=== PATIENT | male | born 1955 | race Caucasian/White ===

== ENCOUNTER 2018-04-28 17:08 | Inpatient (IN) | payer MEDICARE ==
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
--- NOTE | ~2018-04-28 | CON ---
[place], [place] REPORT OF CONSULTATION NAME: TOMI APPIAH UNIT #: [id number] ROOM: 314 DOCTOR: JASON BERNARD DPM BIRTHDATE: [birth year] DOS: 04/29/2018 ADDENDUM The patient was seen with resident, [address]. I agree with the resident's note. JASON BERNARD DPM CM:CONSTR:REPORT OF CONSULTATION 1043 05/08/18 0909 interface
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
[2018-04-28] MEDS ORDERED: ZYVOX600 MG PO (18:19)
[2018-04-28] MEDS ORDERED: LOXAPINE25 MG PO ×2 (18:23→18:32)
[2018-04-28] MEDS ORDERED: LOXAPINE50 MG PO (18:23)
[2018-04-28] MEDS ORDERED: NIFEDIPINE60 MG PO (18:24)
[2018-04-28] MEDS ORDERED: COZAAR100 MG PO (18:25)
[2018-04-28] MEDS ORDERED: Coumadin5 MG PO (18:25)
[2018-04-28] MEDS ORDERED: LASIX40 MG PO (18:26)
[2018-04-28] MEDS ORDERED: INDERAL XL120 MG PO (18:27)
[2018-04-28] MEDS ORDERED: GLUCOPHAGE1000 MG PO (18:28)
[2018-04-28] MEDS ORDERED: NIFEDIPINE ER30 M1 PO (18:33)
[2018-04-28] MEDS ORDERED: MINOCYCLINE100 MG PO (18:34)
[2018-04-29 08:27] VITALS: BP 188/88
[2018-04-29 10:45] VITALS: BP 192/85
[2018-04-29 11:45] VITALS: BP 206/100
[2018-04-29 13:58] VITALS: BP 161/66
[2018-04-29 17:13] LABS: BASO # 0.1 10*3/uL (0.0-0.1); BASO % 0.6 % (0.0-1.0); EOS # 0.4 10*3/uL (0.0-0.4); EOS % 4.3 % (1.0-4.0); HEMATOCRIT 33.3 % (42.0-52.0); HEMOGLOBIN 11.3 g/dl (14.0-18.0); LYMPH # 1.7 10*3/uL (1.3-4.4); LYMPH % 16.6 % (27.0-41.0); MEAN CELL VOLUME 87.4 fl (80.0-94.0); MEAN CORPUSCULAR HGB 29.7 pg (27.0-31.0); MEAN CORPUSCULAR HGB CONC 33.9 g/dl (33.0-37.0); MEAN PLATELET VOLUME 8.2 fl (9.6-12.3); MONO # 1.1 10*3/uL (0.1-1.0); MONO % 10.7 % (3.0-9.0); NEUT # 6.9 10*3/uL (2.3-7.9); NEUT % 67.4 % (47.0-73.0); PLATELET COUNT AUTOMATED 344 10*3/uL (130-400); RED BLOOD COUNT 3.81 10*6/uL (4.50-5.90); RED CELL DISTRI WIDTH 12.4 % (0-14.5); WHITE BLOOD COUNT 10.2 10*3/uL (4.8-10.8)
[2018-04-29 17:25] LABS: BILIRUBIN NEGATIVE (NEGATIVE); BLOOD 1+ (NEGATIVE); CLARITY CLEAR (CLEAR); COLOR YELLOW (YELLOW); GLUCOSE 2+ (NEGATIVE); KETONE NEGATIVE (NEGATIVE); LEUKO ESTERASE NEGATIVE (NEGATIVE); NITRITE NEGATIVE (NEGATIVE); PH 6.5 (5.0-9.0); SPECIFIC GRAVITY 1.015 (1.005-1.030); UROBILINOGEN 0.2 E.U./dl (0.2-1.0)
[2018-04-29 17:29] LABS: INTERNATIONAL NORM RATIO 2.3 (2.0-3.5)
[2018-04-29 17:40] LABS: BACTERIA TRACE
[2018-04-29 17:42] LABS: ALBUMIN 2.9 gm/dl (3.1-4.5); CREATININE 1.72 mg/dL (0.70-1.30); POTASSIUM 3.7 mmol/L (3.5-5.1); TOTAL PROTEIN 6.6 gm/dL (6.4-8.2)
[2018-04-29 17:51] LABS: THYROID STIM HORMONE (HS) 0.94 uIU/ml (0.358-4.75)
[2018-04-29 18:08] LABS: VITAMIN D, 25-HYDROXY 7.8 ng/mL (30-100)
[2018-04-30 06:15] LABS: BASO # 0.1 10*3/uL (0.0-0.1); BASO % 0.9 % (0.0-1.0); EOS # 0.6 10*3/uL (0.0-0.4); EOS % 5.2 % (1.0-4.0); HEMATOCRIT 36.6 % (42.0-52.0); HEMOGLOBIN 12.2 g/dl (14.0-18.0); LYMPH # 1.8 10*3/uL (1.3-4.4); LYMPH % 16.9 % (27.0-41.0); MEAN CELL VOLUME 88.6 fl (80.0-94.0); MEAN CORPUSCULAR HGB 29.5 pg (27.0-31.0); MEAN CORPUSCULAR HGB CONC 33.3 g/dl (33.0-37.0); MEAN PLATELET VOLUME 8.7 fl (9.6-12.3); MONO # 1.1 10*3/uL (0.1-1.0); MONO % 10.6 % (3.0-9.0); NEUT # 7.1 10*3/uL (2.3-7.9); NEUT % 65.9 % (47.0-73.0); PLATELET COUNT AUTOMATED 418 10*3/uL (130-400); RED BLOOD COUNT 4.13 10*6/uL (4.50-5.90); RED CELL DISTRI WIDTH 12.4 % (0-14.5); WHITE BLOOD COUNT 10.7 10*3/uL (4.8-10.8)
[2018-04-30 06:26] LABS: INTERNATIONAL NORM RATIO 2.5 (2.0-3.5)
[2018-04-30 06:28] LABS: CREATININE 1.73 mg/dL (0.70-1.30); POTASSIUM 3.9 mmol/L (3.5-5.1)
[2018-04-30 08:10] VITALS: BP 171/79
== END 2018-04-30 15:43 | disposition home or self-care (01) | DRG 885 ==
LOC: 3N 17:08
PROVIDERS: Internal Medicine; Psychiatry & Neurology Psychiatry
DX: F31.9 Bipolar disorder, unspecified (principal); E11.40 Type 2 diabetes mellitus with diabetic neuropathy, unspecified; E11.69 Type 2 diabetes mellitus with other specified complication; L03.116 Cellulitis of left lower limb; E87.1 Hypo-osmolality and hyponatremia; R45.851 Suicidal ideations; M86.8X7 Other osteomyelitis, ankle and foot; I50.22 Chronic systolic (congestive) heart failure; I11.0 Hypertensive heart disease with heart failure; I48.91 Unspecified atrial fibrillation; D64.9 Anemia, unspecified; R45.850 Homicidal ideations; R74.8 Abnormal levels of other serum enzymes; F10.10 Alcohol abuse, uncomplicated; I16.0 Hypertensive urgency; R45.89 Other symptoms and signs involving emotional state; S91.302A Unspecified open wound, left foot, initial encounter; X58.XXXA Exposure to other specified factors, initial encounter; R22.9 Localized swelling, mass and lump, unspecified; F60.9 Personality disorder, unspecified; Z87.891 Personal history of nicotine dependence; Z82.49 Family history of ischemic heart disease and other diseases of the circulatory system; Z79.899 Other long term (current) drug therapy; Y93.89 Activity, other specified; Z79.01 Long term (current) use of anticoagulants; Y92.89 Other specified places as the place of occurrence of the external cause; Y99.8 Other external cause status